=== PATIENT | female | born 2000 | race Caucasian/White ===

== ENCOUNTER 2020-05-11 11:35 | Emergency (ER) | payer OTHER ==
[~2020-05-11] VITALS: Ht 162.6 cm; Wt 54.9 kg
[2020-05-11 11:38] VITALS: BP 110/73
[2020-05-11] MEDS: TETRACAINE HCL/PF 0.5% OPTH 4 ML BTL OP ONE (11:58)
[2020-05-11] MEDS: FLUORESCEIN OPTH STRIP 1 MG OP ONE (13:00)
[2020-05-11 13:15] VITALS: BP 110/73
== END 2020-05-11 13:15 | disposition home or self-care (01) ==
LOC: MED 11:35
DX: S05.02XA Injury of conjunctiva and corneal abrasion without foreign body, left eye, initial encounter (principal); S05.01XA Injury of conjunctiva and corneal abrasion without foreign body, right eye, initial encounter; H10.213 Acute toxic conjunctivitis, bilateral; X58.XXXA Exposure to other specified factors, initial encounter; Y93.89 Activity, other specified; Y92.89 Other specified places as the place of occurrence of the external cause; Y99.8 Other external cause status
CPT/HCPCS: 99283